=== PATIENT | male | born 1985 | race Caucasian/White ===

== ENCOUNTER 2017-02-24 10:39 | Emergency (ER) | payer MEDICAID ==
[~2017-02-24] VITALS: Ht 177.8 cm; Wt 87.5 kg
[2017-02-24 10:45] VITALS: Ht 177.8 cm; Wt 87.5 kg
[2017-02-24] MEDS ORDERED: ACET325T33 PO (11:11)
[2017-02-24] MEDS ORDERED: IBUP-1542 PO (11:11)
[2017-02-24] MEDS ORDERED: CIPR500T4 PO (11:11)
--- NOTE | 2017-02-24 11:17 | ERD ---
ER Documentation Chief Complaint Date/Time DATE: 02/24/17 TIME: 11:14 Chief Complaint abdominal pain and fever x 3 days HPI Patient is a 31-year-old male with no medical problems who presents with fever. He has had vomiting and diarrhea as well. The diarrhea and vomiting are nonbloody. He said that he has bilateral leg pain and back pain. He said that his symptoms started on Thursday after he was at [employer] and feels like he may have had a bad hamburger. He tried Motrin this morning. He has diffuse abdominal pain. He has no sick contacts. Upon review of old medical records this is the patient's first visit to the emergency department. He does not currently have a primary doctor. ROS All systems reviewed and are negative except as per history of present illness. Medications Home Meds Active Scripts Acetaminophen* (Tylenol*) 325 Mg Tablet, 2 TAB PO Q8 Y for PAIN AND OR ELEVATED TEMP, #20 TAB Prov:RIGOBERTO GÓMEZ MD 02/24/17 Ibuprofen* (Motrin*) 600 Mg Tab, 600 MG PO Q8, #30 TAB Prov:RIGOBERTO GÓMEZ MD 02/24/17 Ciprofloxacin Hcl* (Ciprofloxacin Hcl*) 500 Mg Tablet, 500 MG PO BID for 3 Days , TAB Prov:RIGOBERTO GÓMEZ MD 02/24/17 Allergies Allergies: Coded Allergies: No Known Allergy (Unverified , 02/24/17) PMhx/Soc Medical and Surgical Hx: pt denies Medical Hx, pt denies Surgical Hx FmHx Family History: diabetes Physical Exam Vitals Vital Signs Date Time Temp Pulse Resp B/P Pulse Ox O2 Delivery O2 Flow Rate FiO2 02/24/17 10:45 103.0 111 18 142/62 100 Physical Exam Const: No acute distress Head: Atraumatic Eyes: Normal Conjunctiva ENT: Normal External Ears, Nose and Mouth. Neck: Full range of motion..~ No meningismus. Resp: Clear to auscultation bilaterally Cardio: Tachycardic rate without murmur Abd: Soft, non tender, non distended. Normal bowel sounds, and able to push deeply in all 4 quadrants without pain Skin: No petechiae or rashes Back: No midline or flank tenderness Ext: No cyanosis, or edema Neur: Awake and alert Psych: Normal Mood and Affect Results 24 hrs Current Medications Medications (Trade) Dose Ordered Sig/Victorino Route PRN Reason Start Time Stop Time Status Last Admin Dose Admin Acetaminophen (Tylenol Tab) 650 mg ONCE ONCE PO 02/24/17 11:30 02/24/17 11:31 Procedures/[facility] Patient is a 31-year-old male presents with fever, body pain, vomiting and diarrhea. The patient is otherwise well-appearing and well-hydrated. He does not appear septic. He may have an infectious diarrhea and I will treat him with 3 days of Cipro. I will also give him Tylenol in the emergency department for his fever and he can take Tylenol alternating with Motrin every 4 hours at home. He will need to follow-up the local clinics within 24-48 hours as he does not currently have a primary doctor. He can return to the ER for any worsening symptoms. There is no obvious focal abdominal pain at this point I doubt appendicitis, cholecystitis, pancreatitis, or bowel obstruction. I doubt sepsis. The patient can return for any worsening symptoms. Departure Diagnosis: Primary Impression: Fever Fever type: unspecified Qualified Code: R50.9 - Fever, unspecified fever cause Additional Impressions: Diarrhea Diarrhea type: presumed infectious Qualified Code: A09 - Diarrhea of presumed infectious origin Abdominal pain Abdominal location: generalized Qualified Code: R10.84 - Generalized abdominal pain Condition: Fair Patient Instructions: Abdominal Pain, Treating Diarrhea [facility] Usted se toure hecho un examen mdico de control que le indica que no est en tommy condicin que requiera tratamiento urgente en el Departamento de Emergencia. Un estudio ms profundo y el tratamiento de aparicio condicin pueden esperar sin ningn riesgo hasta que usted sea atendida/o en el consultorio de aparicio mdico o tommy cl sayra. Es responsabilidad suya arreglar tommy eugenio para el seguimiento del evelyn. MANEJO DE CONDICIONES NO URGENTES EN EL FUTURO 1) Si usted tiene un mdico de atencin primaria: Usted debera llamar a aparicio mdico de atencin primaria antes de venir al departamento de emergencia. Despus de las horas de consultorio, aparicio doctor o aparicio asociado/a est disponible por telfono. El mdico o enfermero de tete en el servicio telefnico puede asesorarle por carlos medio para atender el problema, o eveyln contrario se puede programar tommy eugenio. 2) Si usted no tiene un mdico de atencin primaria: Llame al mdico o clnica de referencia que aparece abajo radha las horas de consultorio para hacer tommy eugenio para que le vean. CLINICAS: [facility] [phone] [facility] [phone] [facility] [phone] [place] [phone] [place] [phone] [place] [phone] Additional Instructions: Llame al doctor MAANA y jeniffer tommy EUGENIO PARA DENTRO DE 1-2 BORDEN.Dgale a la secretaria que nosotros le instruimos hacer esta eugenio.Avise o llame si aparicio condicin se empeora antes de la eugenio. Regresa aqui si peor o no mejor. RIGOBERTO GÓMEZ MD Feb 24, 2017 11:17
[2017-02-24] MEDS ORDERED: ACETAMINOPHEN 325 MG TAB PO ONE (11:30)
== END 2017-02-24 12:52 | disposition home or self-care (01) ==
LOC: FTE 10:39
DX: R50.9 Fever, unspecified (principal); A09 Infectious gastroenteritis and colitis, unspecified
CPT/HCPCS: 99283